=== PATIENT | male | born 1985 ===

== ENCOUNTER 2025-10-04 08:00 | Day surgery (SDC) | payer OTHER ==
[2025-09-30 08:51] VITALS: BP 125/85
[2025-09-30 09:37] LABS: BASO % 0.9 % (0.1-1.2); EOS # 0.48 (0.04-0.54); EOS % 5.7 % (0.7-7.0); LYMPH # 2.27 (1.18-3.74); LYMPH % 26.8 % (19.3-53.1); MEAN PLATELET VOLUME 10.00 fl (9.4-12.4); MONO # 0.66 (0.24-0.82); MONO % 7.8 % (4.7-12.5); NEUT # 4.96 (1.56-6.13); NEUT % 58.4 % (34.0-71.1); RED CELL DISTRIBUTION WIDTH 13.0 % (11.6-14.4)
[2025-09-30 09:41] LABS: URINE APPEARANCE Clear; URINE BILIRRUBIN Negative (NEGATIVE); URINE BLOOD Negative; URINE COLOR Yellow; URINE GLUCOSE Negative (NEGATIVE); URINE KETONE Negative (NEGATIVE); URINE LEUKOCYTE Negative; URINE NITRATE Negative; URINE PROTEIN Negative (NEGATIVE); URINE UROBILINOGEN 0.2 E.U./dl
[2025-09-30 09:45] LABS: URINE BACTERIA 7.1 uL (0.0-1933); URINE EPITHELIAL CELLS 3.3 uL (0.0-38.8); URINE WBC 9.5 uL (0.0-23.2)
[2025-09-30 09:48] LABS: URINE CAST 0.00 uL (0.0-1.40); URINE RBC 1.1 uL (0.0-20.8)
[2025-09-30 10:02] LABS: INR 1.01
[2025-09-30 10:09] LABS: BUN CREA RATIO 20.0 (7.0-25.0); CREATININE SERUM 0.8 mg/dL (0.70-1.30); GFR 107.06; GLUCOSE FASTING 90.0 mg/dL (65-100); OSMOLALITY SERUM 282.0 MOSM/KG (275-295)
[~2025-10-04] VITALS: Ht 167.6 cm; Wt 83.9 kg
[~2025-10-04 08:00] MED LIST: CLINDAMYCIN PHOSPHATE 150 MG/ML (900mg) IV SCH; ROSUVASTATIN CA10 MG PO
[2025-10-04] MEDS ORDERED: CLINDAMYCIN PHOSPHATE 150 MG/ML (900mg) ONE (09:02)
[2025-10-04] MEDS ORDERED: POVIDONE-IODINE 118 ML BOTT TOP ONE (13:34)
[2025-10-04] MEDS ORDERED: EPINEPHRINE HCL/PF 1 MG/ML AMPUL ONE (13:34)
[2025-10-04] MEDS ORDERED: LIDOCAINE HCL 1%/EPINEPHRINE 20ML VIAL IJ ONE (13:35)
[2025-10-04] MEDS ORDERED: CEFAZOLIN SODIUM 1,000 MG VIAL ONE (14:14)
[2025-10-04] MEDS ORDERED: CORTISPORIN EAR10 M1 OTIC (14:45)
== END 2025-10-04 16:25 | disposition home or self-care (01) ==
LOC: CIR.AMB 08:00
PROVIDERS: ATTEND Otolaryngology Otology & Neurotology
DX: H72.02 Central perforation of tympanic membrane, left ear (principal); H90.12 Conductive hearing loss, unilateral, left ear, with unrestricted hearing on the contralateral side